=== PATIENT | male | born 1960 | race Caucasian/White ===

== ENCOUNTER 2019-08-22 15:21 | Outpatient (CLI) | payer BC ==
--- NOTE | 2019-08-22 16:48 | SLEEP CARE CONSULTATION ---
Information from patient questionnaire entered by Monet Noel. I have reviewed and concur with the information entered by Monet Noel. This document represents the service I personally performed and the decisions made by me, Eliseo Osborne MD, [facility]. History of Present Illness Reason for Visit: New patient, Previously diagnosed sleep apnea (obstructive - 21.5 AHI in 2012), sleep apnea on CPAP therapy, Re-establish care (last seen 2015) Chief Complaint: reports: Unrefreshed sleep, Frequent awakenings at night Duration of Symptoms: Over a year Usual bedtime: 10pm Time it takes to fall asleep: a few minutes Snores at night: Yes (sometimes) Observed to quit breathing while asleep: Yes Sleeps alone due to snoring: No Number of times waking at night: 6 Reasons for waking at night: reports: Gasping for air Toss, Turn, or Twitch while sleeping: Yes Recalls having dreams: No Usually gets out of bed at: 4:50 am Feels refreshed in the morning: Yes (most of the time) Morning headache: No Sleepy or fatigued during the day: Yes (sometimes) Ever fallen asleep while driving: No Takes day naps: No Dreams during day naps: No Prior sleep studies: Yes Year and Where: 2008 - [facility] Additional HPI information: I had the pleasure of seeing Mr. Kirk today regarding obstructive sleep apnea- hypopnea. As you know, he is a 59 year old gentleman who was diagnosed with the sleep-disordered breathing here in 2008. The AHI was 21.5. He was prescribed a CPAP device set at 7 and later raised to 8 cmH2O for comfort. He continues to use every night and all night. He does not use the humidifier. The compliance data are not available because he forgot to bring the memory card. He got his supplies from [employer]. He finds the treatment beneficial. - Parasomnia Symptoms Ever been unable to move upon waking from sleep: No Ever felt weak in the knees when startled or emotional: No Bothered by creepy, crawly, restless sensations in legs: No Problems with memory or concentration: No Subjective Initial [place] Sleepiness Scale score: 12 (in 2008) Current [place] Sleepiness Scale score: 5 Past Medical History Past Medical History: reports: Other (Obstructive sleep apnea) Social History The patient's occupation is a [employer]. Patient is and lives in [place]. Have you smoked in the past 12 months: No Alcohol use: Yes Alcohol amount and frequency: 2 drinks on weekends Caffeine use: Yes Caffeine amount and frequency: 6 cups a day Family History Family history of sleep disordered breathing: Yes Allergies and Home Medications Drug allergies reviewed: Yes (NKDA) Home medication list reviewed: Yes (none) Review of Systems Cardiovascular: denies: high blood pressure, palpitations, chest pain, irregular heart rate or pulse, leg or foot swelling, have to sleep sitting up, other Respiratory: denies: shortness of breath, wheeze, sputum production, chronic cough, other Gastrointestinal: denies: heartburn, difficulty swallowing, nausea, vomitting, diarrhea, abdominal pain, other Urinary: denies: incontinence, frequency, urgency, impotence, other Neurological: denies: headaches, seizure, head trauma, disorientation, speech dysfunction, gait or balance problems, fainting or unconsciousness, other Psychiatric: denies: Attention Deficit Hyperactivity, anxiety, depression, mood disorder, claustrophobia, other Ear/Nose/Throat: reports: wisdom teeth removed Endocrine: denies: thyroid disease, history of goiter, sluggishness, too hot or cold, excessive thirst, increased appetite, increased urination, unexplained weakness, other Musculoskeletal: denies: joint pain, neck pain, back pain, joint swelling, muscle pain or cramping, mobility problems, other Immunologic: denies: sneezing, rash, itching, allergies to food or environment, other Physical Exam Height: 6 ft 3 in Weight: 226 lb Body Mass Index: 28.2 BMI Classification: Overweight Impression and Plan IMPRESSION: 1. Obstructive Sleep Apnea-Hypopnea Syndrome, moderate, as previously diagnosed. The patient continues to have had good treatment compliance. The current pressure setting appears effective and comfortable. The patient experiences improvement on the treatment. Because the CPAP is now older than the useful life of 5 years, I will order the patient a new one and make it an autoCPAP set between 8 and 12 cmH2O. Plan: 1. Prescription made for an autoCPAP, heated humidifier, and related supplies. 2. Try ResMed N30i mask. 3. Attempt to lose weight. 4. Return for follow up after one month on the new machine. I spent 100% of this visit face to face with the patient with greater than 50% of this was spent time counseling the patient and coordination of care.
== END 2019-08-22 15:22 | disposition home or self-care (01) ==
LOC: SC 15:21
PROVIDERS: ATTEND Internal Medicine Pulmonary Disease
DX: G47.33 Obstructive sleep apnea (adult) (pediatric) (principal); E66.3 Overweight; Z68.28 Body mass index [BMI] 28.0-28.9, adult
CPT/HCPCS: 99203; 99212

== ENCOUNTER 2020-12-12 15:39 | Outpatient (CLI) | payer BC ==
--- NOTE | 2020-12-12 16:23 | SLEEP CARE CONSULTATION ---
Information from patient questionnaire entered by Monet Noel. I have reviewed and concur with the information entered by Monet Noel. This document represents the service I personally performed and the decisions made by , Iraida Landin ARNP. History of Present Illness Service Date and Time: 12/12/2020 1539 Previous diagnosis: Moderate, Obstructive Sleep Apnea-Hypopnea Syndrome AHI: 21.5 (in 2012) Reason for follow up: annual (last seen 08/2019) Equipment type: CPAP Equipment obtained from: [employer] (getting supplies; some issues with communication) Mask style: Nasal Backup mask available: Yes Last cushion change: 1 year Prior sleep studies: Yes Year and Where: 2012 and 2008 ([facility] 3.6[facility] Type of Sleep Study: Polysomnography HPI additional information: USAMA AVALOS was diagnosed to have moderate, AHI 21.5, obstructive sleep apnea- hypopnea syndrome and returned today for CPAP therapy annual follow-up. CPAP Compliance Data - Data Reviewed with Patient Current pressure setting (cmH2O): 8-12 Subjective Patient concerns: reports: air blowing in eyes, mask leak noise, other (snore while using device). denies: aerophagia, mask discomfort, condensation in mask/hose, nasal congestion, dry mouth, nose, throat, epistaxis Observed to snore while using device: Yes Current pressure setting perceived as: comfortable On therapy, patient: reports: sleeping better, awakening more refreshed, being more awake and alert during the day, more rested overall. denies: drowsiness while driving Initial [place] Sleepiness Scale score: 12 (in 2008) Current [place] Sleepiness Scale score: 6 Allergies and Home Medications Home medication list reviewed: Yes (no new meds) Review of Systems Review of systems same as previous: Yes (no changes) Physical Exam Heart Rate: 64 O2 Saturation: 99 Height: 6 ft 3 in Weight: 231 lb Body Mass Index: 28.8 BMI Classification: Overweight Impression and Plan 1. Obstructive Sleep Apnea-Hypopnea Syndrome, moderate, with unknown treatment compliance and unknown apnea control. On CPAP therapy, the patient has better sleep quality and is more rested overall. We had difficulties being able to get his report due to website issues. I will update his compliance information once we have been able to resolve these issues. Patient would like to get a replacement should device since his current device is on the [employer] recall. He has stopped using his other device at this time. He just needs a prescription so that he can purchase another one online from a company that he has found. I will write a prescription for him today. Compliance guidelines for new device and follow up discussed. Patient's apnea severity and rationale for treatment to reduce apnea, improve sleep quality and reduce cardiovascular and cerebrovascular events was reviewed. * Continue auto CPAP pressure at 8-12 cmH2O * Prescription to replace recall CPAP device * Notify me if snoring with mask or feeling that the pressure is too much or too little * Attempt to lose weight * Call this office if any problems using CPAP * Return for follow up in 1 year, or sooner if concerns arise Counseling Topics: Spare mask, Weight loss health impact Visit Type: In Office Time Spent with Patient (minutes): 23 Provider Statement: I spent 100% of the Face to Face Visit with the patient with greater than 50% spent counseling the patient and coordination of care.
== END 2020-12-12 15:40 | disposition home or self-care (01) ==
LOC: SC 15:39
PROVIDERS: ATTEND Nurse Practitioner Family
DX: G47.33 Obstructive sleep apnea (adult) (pediatric) (principal); E66.3 Overweight; Z68.28 Body mass index [BMI] 28.0-28.9, adult
CPT/HCPCS: 99212; 99213